=== PATIENT | female | born 1940 | race Caucasian/White ===

== ENCOUNTER → 2018-04-11 | Day surgery (SDC) | payer MEDICARE ==
[2018-04-10 11:30] VITALS: BMI 32.8
[~2018-04-11] MED LIST: CEFAZOLIN/Water 2 GM/20 ML SYRINGE ONE; Dexamethasone 20 MG/5 ML VIAL ONE; Fentanyl 100 MCG/2 ML VIAL ONE; Glycopyrrolate 0.2 MG/ML 5 ML SYRINGE ONE; Lidocaine 1% PF 5 ML VIAL ONE; Midazolam HCl 2 mg/2 ml Vial ONE; Ondansetron HCl/PF 4 MG/2 ML Vial ONE; PHENYLEPHRINE-NS 100 MCG/ML 10 ML SYRINGE ONE; PROPOFOL 200 MG/20 ML VIAL ONE; SUGAMMADEX SODIUM 200 MG/2 ML VIAL ONE; Thrombin 5000 UNITS/5 ML VIAL ONE; traMADol HCl 50 MG TAB ONE
[2018-04-11 09:11] LABS: Hemoglobin 8.2 g/dL (12.0-16.0); Mean Corpuscular Hemoglobin 21.7 pg (27.0-31.0); Mean Corpuscular Volume 72.1 fl (81.0-99.0); Mean Platelet Volume 7.9 fL (7.4-10.4); Platelet Count 362 thou/uL (130-400); RBC Distribution Width 18.3 % (11.5-14.5); Red Blood Cell (RBC) Count 3.77 mill/uL (4.20-5.40); White Blood Cell (WBC) Count 12.9 thou/uL (4.8-10.8)
[2018-04-11 09:35] LABS: Anion Gap 14 mmol/L (10-20); BUN (Urea Nitrogen) 28 mg/dL (9.8-20.1); Calc. Creatinine Clearance 56 mL/min (70-130); Calcium 9.5 mg/dL (7.8-10.44); Carbon Dioxide 27 mmol/L (23-31); Chloride 104 mmol/L (98-107); Estimated GFR-MDRD 40; Glucose 92 mg/dL (83-110); Potassium 4.3 mmol/L (3.5-5.1); Sodium 141 mmol/L (136-145)
--- NOTE | 2018-04-11 11:25 | OP ---
DATE OF PROCEDURE: 04/11/2018 SURGEON: Jose Enrique Martinez M.D. VIDEO CONTROL OPERATOR: Johanny Tomas PROCEDURE: L4-5 laminectomy. PROCEDURE IN DETAIL: The patient was brought into the operating room and intubated. She was rolled in the prone position on gel-filled chest rolls. Incision made exposing L4 and L5 bilaterally and ou r level was confirmed by x-ray. We performed complete L5 and inferior L4 laminectomies, completely d ecompressing the neural elements. The wound was then extensively irrigated, immaculate hemostasis wa s secured. Vancomycin powder was applied and the wound was closed in anatomic layers.
== END ==
LOC: SDC 06:50
PROVIDERS: ATTEND Neurological Surgery
PROC: 01NB0ZZ Release Lumbar Nerve, Open Approach (ICD-10-PCS; principal; 2018-04-11)
DX: M48.062 Spinal stenosis, lumbar region with neurogenic claudication (principal); J45.909 Unspecified asthma, uncomplicated; M81.0 Age-related osteoporosis without current pathological fracture; Z79.82 Long term (current) use of aspirin; Z79.899 Other long term (current) drug therapy
CPT/HCPCS: 76001; 80048; 85027; 93005; 93010; J1100; J2001; J2250; J2405; J2704; J3010; J3370